=== PATIENT | male | born 1980 | race African-American/Black ===

== ENCOUNTER 2019-04-27 18:50 | Emergency (ER) | payer OTHER ==
[~2019-04-27] VITALS: Ht 172.7 cm; Wt 110.0 kg
[~2019-04-27 18:50] MED LIST: ADVAIR DISK2 IN; AZITHROMYC200 MG/5 M PO; CIPROFLOXACN500 MG PO; FLEXERIL OR; LOSARTAN POT50 MG PO; METFORMIN500 M1 PO; PERCOCET 5/325M1 TAB OR; ROCEPHIN 2250 MG/VIA IM; SYMBICORT1 AE1 IN; ULTRAM50 M1 PO; [UNRECOGNIZED DRUG - REMARK]
[2019-04-27] MEDS ORDERED: AMOXICILLIN500 MG PO (19:47)
[2019-04-27] MEDS ORDERED: ULTRAM50 M1 PO (19:47)
[2019-04-27 19:59] VITALS: BP 133/83
== END 2019-04-27 19:59 | disposition home or self-care (01) | DRG 159 ==
LOC: ED 18:50
DX: K04.7 Periapical abscess without sinus (principal); K02.9 Dental caries, unspecified